=== PATIENT | male | born 1975 | race Two or more races ===

== ENCOUNTER 2018-01-24 15:00 | Emergency (ER) | payer OTHER ==
[~2018-01-24] VITALS: Ht 167.6 cm; Wt 77.1 kg
[~2018-01-24 15:00] MED LIST: CEFUROXIME500 MG PO; SWIM EAR DRO29.57 ML OT
== END 2018-01-24 17:10 | disposition home or self-care (01) ==
LOC: ER 15:00
DX: M54.89 Other dorsalgia (principal)

== ENCOUNTER 2018-01-28 14:44 | Outpatient (CLI) | payer OTHER | END 2018-01-28 14:52 | disposition home or self-care (01) | LOC: RAD 14:44 | DX: M54.5 Low back pain (principal) ==

== ENCOUNTER 2020-05-13 09:35 | Outpatient (CLI) | payer OTHER | END 2020-05-13 09:57 | disposition home or self-care (01) | LOC: LAB 09:35 | PROVIDERS: ATTEND Internal Medicine | DX: R97.20 Elevated prostate specific antigen [PSA] (principal); I10 Essential (primary) hypertension; M54.5 Low back pain; Z01.810 Encounter for preprocedural cardiovascular examination; E03.8 Other specified hypothyroidism; E78.89 Other lipoprotein metabolism disorders; E11.51 Type 2 diabetes mellitus with diabetic peripheral angiopathy without gangrene; E55.9 Vitamin D deficiency, unspecified ==

== ENCOUNTER 2020-05-13 11:38 | Outpatient (CLI) | payer OTHER | END 2020-05-13 11:49 | disposition home or self-care (01) | LOC: SONOGRAMA 11:38 → MAMO-SONO 14:15 | PROVIDERS: ATTEND Internal Medicine | DX: M54.5 Low back pain (principal); I10 Essential (primary) hypertension; Z01.810 Encounter for preprocedural cardiovascular examination; E03.8 Other specified hypothyroidism; E78.89 Other lipoprotein metabolism disorders; E11.51 Type 2 diabetes mellitus with diabetic peripheral angiopathy without gangrene; E55.9 Vitamin D deficiency, unspecified ==

== ENCOUNTER 2020-05-13 15:54 | Outpatient (CLI) | payer OTHER | END 2020-05-13 15:55 | disposition home or self-care (01) | LOC: LAB 15:54 | PROVIDERS: ATTEND Internal Medicine | DX: M54.5 Low back pain (principal); R97.20 Elevated prostate specific antigen [PSA]; I10 Essential (primary) hypertension; Z01.810 Encounter for preprocedural cardiovascular examination; E03.8 Other specified hypothyroidism; E78.89 Other lipoprotein metabolism disorders; E11.51 Type 2 diabetes mellitus with diabetic peripheral angiopathy without gangrene; E55.9 Vitamin D deficiency, unspecified ==

== ENCOUNTER 2020-06-02 08:17 | Outpatient (CLI) | payer OTHER | END 2020-06-02 08:18 | disposition home or self-care (01) | LOC: SONOGRAMA 08:17 | PROVIDERS: ATTEND Pathology Anatomic Pathology & Clinical Pathology | DX: E04.1 Nontoxic single thyroid nodule (principal) ==

== ENCOUNTER 2020-09-05 09:17 | Outpatient (CLI) | payer OTHER | END 2020-09-05 09:23 | disposition home or self-care (01) | LOC: LAB 09:17 | PROVIDERS: ATTEND Surgery | DX: E04.1 Nontoxic single thyroid nodule (principal) ==

== ENCOUNTER 2020-09-15 13:22 | Outpatient (CLI) | payer OTHER | END 2020-09-15 13:49 | disposition home or self-care (01) | LOC: CIR.AMB 13:22 → LAB 13:22 | PROVIDERS: ATTEND Internal Medicine | DX: E03.8 Other specified hypothyroidism (principal); M54.5 Low back pain; E78.89 Other lipoprotein metabolism disorders; E55.9 Vitamin D deficiency, unspecified; E04.1 Nontoxic single thyroid nodule ==

== ENCOUNTER 2020-09-15 14:02 | Outpatient (CLI) | payer OTHER | END 2020-09-15 14:17 | disposition home or self-care (01) | LOC: SONOGRAMA 14:02 | PROVIDERS: ATTEND Surgery | DX: E04.1 Nontoxic single thyroid nodule (principal) ==

== ENCOUNTER → 2020-09-22 | Outpatient (CLI) | payer OTHER | END | disposition home or self-care (01) | LOC: OFIC 805 15:30 | PROVIDERS: ATTEND Otolaryngology | DX: R49.0 Dysphonia (principal); E04.1 Nontoxic single thyroid nodule; K21.9 Gastro-esophageal reflux disease without esophagitis ==

== ENCOUNTER 2020-11-17 14:51 | Outpatient (CLI) | payer OTHER | END 2020-11-17 17:17 | disposition home or self-care (01) | LOC: OFIC 805 14:51 | PROVIDERS: ATTEND Otolaryngology | DX: K21.9 Gastro-esophageal reflux disease without esophagitis (principal) ==

== ENCOUNTER 2020-12-28 09:52 | Outpatient (CLI) | payer OTHER | END 2020-12-28 10:13 | disposition home or self-care (01) | LOC: LAB 09:52 | PROVIDERS: ATTEND Internal Medicine | DX: M54.5 Low back pain (principal); E03.8 Other specified hypothyroidism; E78.89 Other lipoprotein metabolism disorders; E55.9 Vitamin D deficiency, unspecified; E04.1 Nontoxic single thyroid nodule ==

== ENCOUNTER 2021-09-28 08:12 | Outpatient (CLI) | payer OTHER | END 2021-09-28 08:13 | disposition home or self-care (01) | LOC: LAB 08:12 | PROVIDERS: ATTEND Internal Medicine | DX: E03.8 Other specified hypothyroidism (principal); M54.59 Other low back pain; E78.89 Other lipoprotein metabolism disorders; E55.9 Vitamin D deficiency, unspecified; E04.1 Nontoxic single thyroid nodule; Z12.11 Encounter for screening for malignant neoplasm of colon ==

== ENCOUNTER 2023-01-03 09:16 | Emergency (ER) | payer OTHER ==
[~2023-01-03] VITALS: Ht 170.2 cm; Wt 77.1 kg
[2023-01-03] MEDS ORDERED: ECOTRIN81 MG (09:25)
== END 2023-01-03 13:28 | disposition home or self-care (01) ==
LOC: ER 09:16
DX: M94.0 Chondrocostal junction syndrome [Tietze] (principal)

== ENCOUNTER 2023-01-29 09:24 | Outpatient (CLI) | payer OTHER ==
[~2023-01-29 09:24] MED LIST changes: +ECOTRIN81 MG
== END 2023-01-29 09:41 | disposition home or self-care (01) ==
LOC: LAB 09:24
PROVIDERS: ATTEND Internal Medicine
DX: M54.59 Other low back pain (principal); E03.9 Hypothyroidism, unspecified; E78.9 Disorder of lipoprotein metabolism, unspecified; E55.9 Vitamin D deficiency, unspecified; E04.1 Nontoxic single thyroid nodule; B30.2 Viral pharyngoconjunctivitis; J06.9 Acute upper respiratory infection, unspecified

== ENCOUNTER 2023-02-28 14:59 | Outpatient (CLI) | payer OTHER | END 2023-02-28 15:08 | disposition home or self-care (01) | LOC: RAD 14:59 | PROVIDERS: ATTEND Orthopaedic Surgery | DX: M25.561 Pain in right knee (principal) ==

== ENCOUNTER 2023-05-14 12:50 | Emergency (ER) | payer OTHER ==
[~2023-05-14] VITALS: Ht 170.2 cm; Wt 72.6 kg
[2023-05-14] MEDS ORDERED: CHILDREN'S ASPI81 MG PO (13:50)
== END 2023-05-14 17:23 | disposition home or self-care (01) ==
LOC: ER 12:50
DX: S62.396A Other fracture of fifth metacarpal bone, right hand, initial encounter for closed fracture (principal); W20.8XXA Other cause of strike by thrown, projected or falling object, initial encounter; Y93.9 Activity, unspecified; Y92.9 Unspecified place or not applicable; Y99.9 Unspecified external cause status

== ENCOUNTER 2024-09-15 11:22 | Outpatient (CLI) | payer OTHER ==
[~2024-09-15 11:22] MED LIST changes: +CHILDREN'S ASPI81 MG PO
== END 2024-09-15 11:33 | disposition home or self-care (01) ==
LOC: RAD 11:22
PROVIDERS: ATTEND Internal Medicine
DX: S60.011A Contusion of right thumb without damage to nail, initial encounter (principal)

== ENCOUNTER 2024-09-18 08:18 | Outpatient (CLI) | payer OTHER | END 2024-09-18 08:26 | disposition home or self-care (01) | LOC: RAD 08:18 | PROVIDERS: ATTEND Orthopaedic Surgery | DX: M79.644 Pain in right finger(s) (principal) ==